=== PATIENT | female | born 1960 | race Caucasian/White ===

== ENCOUNTER → 2019-11-17 | Outpatient (CLI) | payer MEDICARE ==
[~2019-11-17] MED LIST: FAMO10TA26 PO; FURO40TA4 PO; GABA800T5 PO; HYDR-3135 PO; LISI10TA2 PO; METO-239 PO; TIZA4TAB2 PO; VENTOLIN HFA18 GM INH
--- NOTE | 2019-11-17 13:12 | PAIN ---
DATE OF SERVICE: 11/17/2019 INITIAL CONSULTATION FOR PAIN CLINIC CHIEF COMPLAINT: Neck and bilateral upper extremity pain. SECONDARY COMPLAINT: Low back and bilateral lower extremity pain. HISTORY OF PRESENT ILLNESS: This is a 59-year-old female who presents with history of pain since January of last year, gradually increasing, not a result of any specific injury or accident, but she has had pain in her low back from the low back injury previously from years ago. Her main complaint is neck and shoulder pain, upper extremities. The patient was living in [place] at that time, she had relocated to [place] in May of last year to help her daughter to take care of her grandchildren. The patient reports she has been here ever since and her is actually going to relocate back to [place]. She will not be going back to [place]. The patient reports her pain in the base of neck and shoulders, upper extremities, left greater than right, but present bilaterally. The patient describes it as sharp, tingling, numbness, radiating down the left upper extremity as well as right upper extremity, and base of the neck, making it very difficult with motion of spine, there is no guarding in her neck and very stiff, tight, shooting and throbbing pain in the neck itself as well as the upper back and upper shoulders, also some pain in the low back and bilateral lower extremities, which is moderate as well. The patient reports it awakens her from sleep at least twice a night, does not affect her bowel or bladder control or ability to walk. Not using any assistive devices to ambulate. The patient has tried gabapentin. She is taking Charlotte as well, which does help decrease the pain, but it is becoming less and less effective as she takes it. The patient reports she has had physical therapy, trigger point injections, epidural injections, all in May of last year in [place] and all of which did help to a moderate extent, but were limited. The patient rates her disability rating from 0-10, 10 being the worst, is at 9 with family home responsibilities, 10 with recreation and occupational activities, 7 with social activity, 6 with sexual behavior, 5 with self-care and 5 with life support activities. The patient has had no recent diagnostic studies. PAST MEDICAL HISTORY: Significant for COPD, cigarette smoking, still smoking half pack a day, myocardial infarction, congestive heart failure, anemia, arthritis, headaches. PREVIOUS SURGERIES: Include tubal ligation in 1989, cervical fusion, C5-C6 and lithotripsy in 1985. CURRENT MEDICATIONS: Include lisinopril, Ventolin inhaler, Pepcid, tizanidine, Lasix, metoprolol, Charlotte and gabapentin. ALLERGIES: THE PATIENT IS ALLERGIC TO PENICILLIN AND ASPIRIN. FAMILY HISTORY: Significant for cancers and heart disease. SOCIAL HISTORY: The patient does not drink alcohol, does smoke about half a pack of cigarettes, has for 30 years, continues to smoke. She does not use any illegal, illicit or recreational drugs. She is , currently lives locally with her daughter and is taking care of her grandchildren. The patient reports otherwise she is retired. REVIEW OF SYSTEMS: The patient's review of systems is positive for those items mentioned in history of present illness. All systems reviewed and otherwise negative. It is complete, full and well documented on the patient's chart. PHYSICAL EXAMINATION: VITAL SIGNS: The patient's blood pressure 123/76, pulse 98, respirations 18, temperature 98.0 degrees Fahrenheit, height is 5 feet, weight is 153 pounds. GENERAL: The patient is awake, alert, oriented, appropriate, very pleasant demeanor. HEENT: Shows normocephalic, atraumatic. Extraocular movements are intact and symmetrical. Oral cavity shows mucous membranes moist and pink. Dentition is intact. NECK: Shows anterior throat supple without palpable lymphadenopathy noted. Swallow reflex symmetrical. CHEST: Shows normal on inspection. Breath sounds are clear bilaterally without any rales, rhonchi or wheezes. HEART: Shows S1, S2 clear. No murmurs auscultated. ABDOMEN: Soft, nontender, nondistended. No palpable organomegaly is noted. No rebound or guarding demonstrated. BACK: The patient's back shows spine grossly in midline. Cervical spine shows significant tenderness in the paraspinous musculature, but appears symmetrical, very firm, very tender with very rope-like musculature throughout the upper, middle and lower distribution of paraspinous muscles, also superior medial and lateral trapezius bilaterally with very firm rope-like musculature consistent with trigger point areas of muscle, very firm, very tender without specific radiation. The patient does have limited rotation of motion, which is guarded significantly going to 45 degrees, right and left lateral as well as full extension, full forward flexion is performed a little bit easier, but with still significant pain and guarding noted with rotational motion of cervical spine. The patient's lumbar spine shows normal lordotic curvature. Lumbar paraspinous muscle shows symmetrical on inspection, on palpation shows some moderate tenderness diffusely throughout the upper, middle and lower distribution of paraspinous muscle, more tender in the lower distribution with some rope-like musculature here as well. Very firm and tender bilaterally but without radiation. EXTREMITIES: The patient's extremities show upper extremity deep tendon reflexes 2+ in the biceps, triceps tendons. 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 Peripheral pulses are 2+ radial. Lower extremities show deep tendon reflexes 1+ in the patellar and tendo calcaneus tendons. Motor exam is strong with 5/5 dorsiflexion, extension, quadriceps and hamstring flexion and symmetrical as well. Peripheral pulses are 1+ posterior tibial. No peripheral edema is noted in the upper or lower extremities. Upper extremities are warm and dry to touch, equal in color and appearance as of the lower extremities and appear roughly symmetrical. The patient is able to stand, stand on her toes without significant difficulty or loss of balance, walks with a normal appearing gait without any use of assistive devices. SKIN: Shows warm and dry, good turgor. No edema. No sores, rashes or bruising throughout. IMPRESSION: 1. This is a 59-year-old female with approximately 10-month history of pain in the base of neck and shoulders, upper extremities as well as low back and lower extremity pain. 2. Arthritis. 3. Chronic obstructive pulmonary disease. 4. Myocardial disease. 5. Cigarette smoking. PLAN: Options were discussed with the patient including conservative medical managements, physical therapies and interventional techniques. As she has done well with interventional techniques in the past, she would like to pursue this again. She is still doing some stretching and strengthening exercises on her own, which she learned from physical therapy in the past, but still pain is becoming worse, especially in the neck and shoulders. We discussed trigger point injections and we will wait for preauthorization with her insurance provider for the cervical paraspinous muscles as well as the trapezius musculature and thoracic paraspinous muscles as identified. In the meantime, patient will continue with stretching and strengthening exercise, [id number] anti-inflammatories, heat application and stretching as well. We will have the patient preauthorized and we will plan on trigger point injections of the aforementioned musculature on her return. DEMETRICE DUONG MD DR: MATEO/maik JOB#: [id number] / [id number]
== END ==
LOC: PNCL 10:00
PROVIDERS: ATTEND Anesthesiology
DX: I51.5 Myocardial degeneration (principal); M79.605 Pain in left leg; M79.604 Pain in right leg; J44.9 Chronic obstructive pulmonary disease, unspecified; F17.210 Nicotine dependence, cigarettes, uncomplicated; M19.90 Unspecified osteoarthritis, unspecified site; M54.2 Cervicalgia; M54.5 Low back pain
CPT/HCPCS: G0463

== ENCOUNTER → 2020-04-05 | Outpatient (CLI) | payer BC, MEDICARE ==
--- NOTE | 2020-04-05 16:41 | CARD ---
MR#: [id number] Date of Study: 04/05/2020 Ordering Physician: PAVEL ARELLANO, Referring Physician: PAVEL ARELLANO, Tech: Farnaz Curtis APPROVED REPORT EXAM: Two-dimensional and M-mode echocardiogram with Doppler and color Doppler. Other Information Quality : AverageHR: 65bpm Rhythm : NSRAtrial FibrillationTechnically limited study due to COPD INDICATION Cardiomyopathy RISK FACTORS Smoking 2D DIMENSIONS RVDd3.6 (2.9-3.5cm)Left Atrium(2D)3.2 (1.6-4.0cm) IVSd0.8 (0.7-1.1cm)Aortic Root(2D)3.2 (2.0-3.7cm) LVDd5.0 (3.9-5.9cm)LVOT Diameter2.0 (1.8-2.4cm) PWd1.0 (0.7-1.1cm)LVDs3.4 (2.5-4.0cm) FS (%) 33.4 %SV74.5 ml Aortic Valve AoV Peak Jin.126.8cm/sAoV VTI21.3cm AO Peak GR.6.4mmHgLVOT Peak Jin.83.1cm/s LVOT VTI 15.06cmAO Mean GR.4mmHg SHIRIN (VMAX)1.48hf1KBC (VTI)2.28cm2 Mitral Valve MV E Oqivxgdc76.2cm/sMV DECEL [id number] MV A Ekxpishf47.5cm/sMV E Mean Gr.1mmHg MV SGG93sqP/A Ratio0.9 MVA (PHT)2.91cm2 TDI E/Lateral E'6.9E/Medial E'10.2 Pulmonary Valve PV Peak Ixsdpbof55.3cm/sPV Peak Grad.3mmHg Tricuspid Valve TR P. Igiiccpa574gx/sRAP [id number] TR Peak Gr.50gmYyMQPG07xiAa Pulmonary Vein S1 Xkfaulqo06.3cm/sD2 Oywydqas64.5cm/s PVa [id number] LEFT VENTRICLE The left ventricle is normal size. There is normal left ventricular wall thickness. The left ventricu lar systolic function is normal and the ejection fraction is within normal range. The Ejection Fracti on is 50-55%. There is normal LV segmental wall motion. Transmitral Doppler flow pattern is Grade II- pseudonormal filling dynamics. RIGHT VENTRICLE The right ventricle is normal size. There is normal right ventricular wall thickness. The right ventr icular systolic function is normal. ATRIA The left atrium size is normal. The right atrium size is normal. The interatrial septum is intact wit h no evidence for an atrial septal defect or patent foramen ovale as noted on 2-D or Doppler imaging. AORTIC VALVE The aortic valve is normal in structure and function. Doppler and Color Flow revealed no significant aortic regurgitation. There is no significant aortic valvular stenosis. Calculated aortic valve area is 2.11 cm2 with maximum pressure gradient of 7 mmHg and mean pressure gradient of 4 mmHg. MITRAL VALVE The mitral valve is normal in structure and function. There is no evidence of mitral valve prolapse. There is no mitral valve stenosis. Doppler and Color Flow revealed trace mitral valve regurgitation. TRICUSPID VALVE The tricuspid valve is not well visualized. Doppler and Color Flow revealed trace tricuspid valve reg urgitation noted with an estimated PAP of 17 mmHg. There is no tricuspid valve stenosis. PULMONIC VALVE The pulmonic valve is not well visualized. Doppler and Color Flow revealed no pulmonic valvular regur gitation. GREAT VESSELS The aortic root is normal in size. The ascending aorta is normal in size. The IVC is normal in size a nd collapses >50% with inspiration. PERICARDIAL EFFUSION There is no evidence of significant pericardial effusion. Critical Notification Critical Value: No <Conclusion> The left ventricle is normal size. The left ventricular systolic function is normal and the ejection fraction is within normal range. The Ejection Fraction is 50-55%. Doppler and Color Flow revealed no significant aortic regurgitation. There is no significant aortic valvular stenosis. Doppler and Color Flow revealed trace mitral valve regurgitation. Doppler and Color Flow revealed trace tricuspid valve regurgitation noted with an estimated PAP of 17 mmHg. Signed by : Musa Floyd MD Electronically Approved : 04/05/2020 16:40:47
== END | disposition home or self-care (01) ==
LOC: ECHO 14:50
PROVIDERS: ATTEND Internal Medicine Cardiovascular Disease
DX: I42.9 Cardiomyopathy, unspecified (principal)
CPT/HCPCS: 93306

== ENCOUNTER → 2020-05-21 | Outpatient (CLI) | payer BC, MEDICARE ==
[~2020-05-21] MED LIST changes: +REGADENOSON 0.4 MG/5 ML DISP.SYRIN. IV ONE
== END ==
LOC: NM 14:39
PROVIDERS: ATTEND Internal Medicine Cardiovascular Disease
DX: R06.00 Dyspnea, unspecified (principal)
CPT/HCPCS: 78451; 93017; A9500